=== PATIENT | female | born 1985 | race African-American/Black ===

== ENCOUNTER 2016-11-05 17:00 | Emergency (ER) | payer MEDICAID ==
[~2016-11-05] VITALS: Ht 154.9 cm; Wt 76.2 kg
[~2016-11-05 17:00] MED LIST: KEFLEX500 MG ORAL; NKM
--- NOTE | 2016-11-05 17:18 | Emergency Room Report ---
History of Present Illness General Chief Complaint: Nausea Source: Patient (Teresa Granados) Present Illness HPI 31-year-old female presents emergency Department with nausea and one episode of vomiting non-bloody vomitus times one day. Patient also reports increasing urinary frequency. Patient denies fevers or chills. Patient states her last vaginal period was in August and she is worried that she may be . Patient also states that she has irregular periods.She is . She denies abdominal pain cramping constipation or diarrhea. Denies CP, Palpitations, LOC, AMS, dizziness, Changes in Vision, Sensation, paresthesias, or a sudden severe headache. (Teresa Granados) Allergies: Coded Allergies: No Known Allergies (Unverified , 11/11/12) Patient History Past Medical History: see triage record Past Surgical History: none Pertinent Family History: none Last Menstrual Period: aug 09, 2016 Now: No : 3 Para: 3 Reviewed Nursing Documentation: PMH: Agreed, PSxH: Agreed (Teresa Granados) Nursing Documentation-PMH Past Medical History: No History, Except For (Teresa Granados) Review of Systems All Other Systems: negative except mentioned in HPI (Teresa Granados) Physical Exam Vital Signs Date Time Temp Pulse Resp B/P Pulse Ox O2 Delivery O2 Flow Rate FiO2 11/05/16 17:07 98.4 76 16 121/56 98 Room Air Sp02 EP Interpretation: reviewed, normal General Appearance: no apparent distress, alert, GCS 15, non-toxic Head: normocephalic, atraumatic Eyes: bilateral eye PERRL, bilateral eye normal inspection ENT: hearing grossly normal, normal pharynx, no angioedema, normal voice Neck: full range of motion, supple/symm/no masses Respiratory: chest non-tender, lungs clear, normal breath sounds, speaking full sentences Cardiovascular #1: regular rate, rhythm, no edema Gastrointestinal: normal bowel sounds, non tender, soft, no guarding, no rebound Rectal: deferred Genitourinary: normal inspection, no CVA tenderness Musculoskeletal: back normal, gait/station normal, normal range of motion, non- tender, no calf tenderness Neurologic: alert, oriented x3, responsive, motor strength/tone normal, sensory intact, speech normal Psychiatric: judgement/insight normal, memory normal, mood/affect normal, no suicidal/homicidal ideation Skin: normal color, no rash, warm/dry, well hydrated Lymphatic: no adenopathy (Teresa Granados) Medical Decision Making PA Attestation Dr. bowles is my supervising Physician whom patient management has been discussed with. (Teresa Granados) Diagnostic Impression: Primary Impression: Nausea and vomiting in Additional Impression: UTI (urinary tract infection) Qualified Codes: N30.00 - Acute cystitis without hematuria ER Course Pt. presents to the ED c/o N/V x 1 day with LMP 4 months ago. denies abdominal pain. Ddx considered but are not limited to UTi , , GE. Vital signs: are WNL, pt. is afebrile H&PE are most consistent with UTI ORDERS: - UA labs are attached : WBC's and Leukocyte esterases with few bacteria indicative of mild UTI -Urine Hcg: Positive ED INTERVENTIONS: -4mg Zofran ODT. -D/w Pt. the results of her laboratory tests, d/w pt. proper follow up with OBGYN DISCHARGE: At this time pt. is stable for d/c to home. Will provide printed patient care instructions, and any necessary prescriptions. Care plan and follow up instructions have been discussed with the patient prior to discharge. (Teresa Granados) ER Course urine cx results show klebsiella. resistance to macrobid. left message. certified letter sent (DC PIEDRA M.D.) Last Vital Signs Date Time Temp Pulse Resp B/P Pulse Ox O2 Delivery O2 Flow Rate FiO2 11/05/16 17:07 98.4 76 16 121/56 98 Room Air (Teresa Granados) Disposition: HOME, SELF-CARE Condition: Stable Scripts Metoclopramide Hcl* (REGLAN*) 10 Mg Tablet 10 MG ORAL THREE TIMES A DAY Y for Nausea & Vomiting, #15 TAB Prov: Teresa Granados 11/05/16 Vit #91/Fe Fum/Fa/Dha ( + DHA COMBO PACK) 1 Each Combo..pkg 1 EACH PO DAILY, #1 PACK Prov: Teresa Granados 11/05/16 Nitrofurantoin Monohyd/M-Cryst* (MACROBID 100 MG*) 100 Mg Capsule 100 MG ORAL EVERY 12 HOURS for 7 Days, #14 CAP Prov: Teresa Granados 11/05/16 Patient Instructions: First Trimester of , Urinary Tract Infection, Ltsy-te-Pnic Additional Instructions: Take medications as directed. Follow up with OBGYN in 3-5 days Return sooner to ED if new symptoms occur, or current symptoms become worse. Teresa Granados Nov 05, 2016 17:18 DC PIEDRA M.D. Nov 08, 2016 14:57
[2016-11-05 17:25] LABS: APPEARANCE,URINE SLIGHTLY CLOUDY; KETONES,URINE NEGATIVE (NEGATIVE); LEUKOCYTE ESTERASE ,URINE 2+ (NEGATIVE); NITRITE,URINE NEGATIVE (NEGATIVE); PH,URINE 8 (4.5-8.0); PROTEIN,URINE NEGATIVE (NEGATIVE); UROBILINOGEN,URINE NORMAL MG/DL (0.0-1.0)
[2016-11-05 17:36] LABS: BACTERIA,URINE MODERATE /HPF; SQUAMOUS EPITHELIAL CELL,UR MODERATE /LPF (NONE/OCC); WBC,URINE 15-20 /HPF (0 - 2)
[2016-11-05] MEDS ORDERED: REGLAN10 MG ORAL (17:58)
[2016-11-05] MEDS ORDERED: PRENATAL + DHA1 EAC1 PO (17:58)
[2016-11-05] MEDS ORDERED: NITROFURANTOIN100 M2 ORAL (17:58)
[2016-11-05 18:09] VITALS: BP 114/64
== END 2016-11-05 18:15 | disposition home or self-care (01) ==
LOC: EMR 17:19
DX: O21.9 Vomiting of pregnancy, unspecified (principal); O23.41 Unspecified infection of urinary tract in pregnancy, first trimester; Z3A.00 Weeks of gestation of pregnancy not specified
CPT/HCPCS: 81003; 81025; 87086; 87181; 99284

== ENCOUNTER 2016-11-27 18:08 | Emergency (ER) | payer MEDICAID ==
[~2016-11-27] VITALS: Ht 154.9 cm; Wt 93.0 kg
[~2016-11-27 18:08] MED LIST changes: +NITROFURANTOIN100 M2 ORAL; +PRENATAL + DHA1 EAC1 PO; +REGLAN10 MG ORAL
--- NOTE | 2016-11-27 18:27 | Emergency Room Report ---
History of Present Illness General Chief Complaint: Abdominal Pain Source: Patient Present Illness HPI The pt is a 31 yo F began spotting this morning with lower abd cramping and nausea. The patient is currently at unknown gestation with LNMP 3 months prior. The patient has not had abdominal ultrasound but does have a OB/ TOOL SHARPENER she is seeing. Pain is described as a 10 of 10 dull ache to the mid lower abdomen which radiates to the back. Patient also admits to dysuria. The patient states that she has seen blood when wiping the vagina. She denies any other vaginal discharge. The patient does admit to nausea but denies vomiting and denies any other symptoms including F, chills, DEAN, dizziness, blurred vision , CP, SOB, numbness/tingling. The patient denies any abdominal contractions and denies any tissue passing. Allergies: Coded Allergies: No Known Allergies (Unverified , 11/11/12) Patient History Past Medical History: see triage record Pertinent Family History: none Last Menstrual Period: Aug 2016 irregular cycle Now: Yes - unsure how many weeks : 4 Para: 3 Reviewed Nursing Documentation: PMH: Agreed, PSxH: Agreed Nursing Documentation-PMH Past Medical History: No Stated History Review of Systems All Other Systems: negative except mentioned in HPI Physical Exam Vital Signs Date Time Temp Pulse Resp B/P Pulse Ox O2 Delivery O2 Flow Rate FiO2 11/27/16 18:17 98.1 86 14 101/66 100 Room Air Sp02 EP Interpretation: reviewed, normal General Appearance: no apparent distress, alert, GCS 15, non-toxic Head: normocephalic, atraumatic Eyes: bilateral eye PERRL, bilateral eye normal inspection ENT: hearing grossly normal, normal pharynx, no angioedema, normal voice Gastrointestinal: normal bowel sounds, soft, non-distended, no guarding, no rebound, tenderness - suprapubic Rectal: deferred Genitourinary: normal inspection, no CVA tenderness Musculoskeletal: back normal, gait/station normal, normal range of motion, non- tender Neurologic: alert, oriented x3, responsive, motor strength/tone normal, sensory intact, normal gait, speech normal Psychiatric: judgement/insight normal, memory normal, mood/affect normal, no suicidal/homicidal ideation Skin: normal color, no rash, warm/dry, well hydrated Lymphatic: no adenopathy Medical Decision Making PA Attestation Dr. Rivero is my supervising physician. Patient management was discussed with my supervising physician Diagnostic Impression: Primary Impression: Urinary tract infection affecting ER Course The pt is a 31 yo F began spotting this morning with lower abd cramping and nausea. Differential diagnoses considered include but not limited to UTI, pyelonephritis , threatened , ectopic , hemorrhagic cyst PE: Vitals WNL. NAD. Abdomen: Normal appearance. Non distended. No ecchymosis. Normal BS. No McBurney point tenderness. No guarding. + suprapubic TTP. No CVA tenderness CBC shows leukocytosis. It was unremarkable CMP unremarkable Beta hCG consistent with first trimester Urinalysis is consistent with urinary tract infection The patient is given IV fluids and Zofran and is feeling better The patient is discharged with a prescription for Keflex and will followup with DATA MINING ANALYST as was possible.ER precautions given Laboratory Tests Test 11/27/16 18:48 White Blood Count 13.7 K/UL (4.8-10.8) H Red Blood Count 4.18 M/UL (4.20-5.40) L Hemoglobin 13.1 G/DL (12.0-16.0) Hematocrit 38.8 % (37.0-47.0) Mean Corpuscular Volume 93 FL (80-99) Mean Corpuscular Hemoglobin 31.4 PG (27.0-31.0) H Mean Corpuscular Hemoglobin Concent 33.9 G/DL (32.0-36.0) Red Cell Distribution Width 12.1 % (11.6-14.8) Platelet Count 247 K/UL (150-450) Mean Platelet Volume 5.8 FL (6.5-10.1) L Neutrophils (%) (Auto) 66.9 % (45.0-75.0) Lymphocytes (%) (Auto) 25.7 % (20.0-45.0) Monocytes (%) (Auto) 6.0 % (1.0-10.0) Eosinophils (%) (Auto) 0.7 % (0.0-3.0) Basophils (%) (Auto) 0.7 % (0.0-2.0) Urine Color Yellow Urine Appearance Clear Urine pH 7 (4.5-8.0) Urine Specific [place] 1.010 (1.005-1.035) Urine Protein Negative (NEGATIVE) Urine Glucose (UA) Negative (NEGATIVE) Urine Ketones Negative (NEGATIVE) Urine Occult Blood 2+ (NEGATIVE) H Urine Nitrite Negative (NEGATIVE) Urine Bilirubin Negative (NEGATIVE) Urine Urobilinogen Normal MG/DL (0.0-1.0) Urine Leukocyte Esterase 2+ (NEGATIVE) H Urine RBC 0-2 /HPF (0 - 2) Urine WBC 5-10 /HPF (0 - 2) H Urine Squamous Epithelial Cells Moderate /LPF (NONE/OCC) H Urine Amorphous Sediment Moderate /LPF (NONE) H Urine Bacteria Moderate /HPF (NONE) H Urine HCG, Qualitative Positive Sodium Level 136 mEQ/L (135-145) Potassium Level 4.1 mEQ/L (3.4-4.9) Chloride Level 98 mEQ/L (98-107) Carbon Dioxide Level 23 mEQ/L (20-30) Anion Gap 15 (5-15) Blood Urea Nitrogen 10 mg/dL (7-23) Creatinine 0.7 mg/dL (0.5-0.9) Estimate Glomerular Filtration Rate > 60 mL/min (>60) Glucose Level 94 mg/dL (74-106) Calcium Level 9.5 mg/dL (8.6-10.2) Total Bilirubin < 0.2 mg/dL (0.0-1.2) Aspartate Amino Transferase (AST) 14 U/L (5-40) Alanine Aminotransferase (ALT) 12 U/L (3-33) Alkaline Phosphatase 49 U/L (35-104) Total Protein 6.5 g/dL (6.6-8.7) L Albumin 3.9 g/dL (3.5-5.2) Globulin 2.6 g/dL Albumin/Globulin Ratio 1.5 (1.0-2.7) Human Chorionic Gonadotropin, Quant [id number] mIU/mL Lab Results Impression CBC shows leukocytosis. It was unremarkable CMP unremarkable Beta hCG consistent with first trimester Urinalysis is consistent with urinary tract infection Last Vital Signs Date Time Temp Pulse Resp B/P Pulse Ox O2 Delivery O2 Flow Rate FiO2 11/27/16 18:17 98.1 86 14 101/66 100 Room Air Status: improved Disposition: HOME, SELF-CARE Condition: Improved Scripts Cephalexin (Keflex) 250 Mg Capsule 250 MG PO Q6HR, #28 CAP Prov: LEON ROSAS 11/27/16 LEON ROSAS Nov 27, 2016 18:27
[2016-11-27 18:52] VITALS: BP 110/71
[2016-11-27 19:00] LABS: BASOPHILS % (AUTO) 0.7 % (0.0-2.0); EOSINOPHILS % (AUTO) 0.7 % (0.0-3.0); LYMPHOCYTES % (AUTO) 25.7 % (20.0-45.0); MEAN CORPUSCULAR HEMOGLOBIN 31.4 PG (27.0-31.0); MEAN CORPUSCULAR HGB CONC 33.9 G/DL (32.0-36.0); MEAN CORPUSCULAR VOLUME 93 FL (80-99); MEAN PLATELET VOLUME 5.8 FL (6.5-10.1); NEUTROPHILS % (AUTO) 66.9 % (45.0-75.0); PLATELET COUNT 247 K/UL (150-450); RED BLOOD COUNT 4.18 M/UL (4.20-5.40); RED CELL DISTRIBUTION WIDTH 12.1 % (11.6-14.8); WHITE BLOOD COUNT 13.7 K/UL (4.8-10.8)
[2016-11-27 19:01] LABS: APPEARANCE,URINE CLEAR; KETONES,URINE NEGATIVE (NEGATIVE); LEUKOCYTE ESTERASE ,URINE 2+ (NEGATIVE); NITRITE,URINE NEGATIVE (NEGATIVE); PH,URINE 7 (4.5-8.0); PROTEIN,URINE NEGATIVE (NEGATIVE); UROBILINOGEN,URINE NORMAL MG/DL (0.0-1.0)
[2016-11-27 19:14] LABS: RBC,URINE 0-2 /HPF (0 - 2)
[2016-11-27 19:15] LABS: ALANINE AMINOTRANSFERASE 12 U/L (3-33); ALBUMIN/GLOBULIN RATIO 1.5 (1.0-2.7); AMORPHOUS SEDIMENT,UR MODERATE /LPF; ANION GAP 15 (5-15); ASPARTATE AMINO TRANSFERASE 14 U/L (5-40); BACTERIA,URINE MODERATE /HPF; CALCIUM 9.5 mg/dL (8.6-10.2); CARBON DIOXIDE 23 mEQ/L (20-30); CHLORIDE 98 mEQ/L (98-107); CREATININE 0.7 mg/dL (0.5-0.9); GLOMERULAR FILTRATION RATE > 60 mL/min (>60); HEMOLYSIS 16; POTASSIUM 4.1 mEQ/L (3.4-4.9); SODIUM 136 mEQ/L (135-145); SQUAMOUS EPITHELIAL CELL,UR MODERATE /LPF (NONE/OCC); TOTAL PROTEIN 6.5 g/dL (6.6-8.7)
[2016-11-27 20:02] VITALS: BP 101/65
[2016-11-27] MEDS ORDERED: KEFLEX250 M1 PO (20:31)
[2016-11-27 20:42] VITALS: BP 101/65
== END 2016-11-27 20:44 | disposition home or self-care (01) ==
LOC: EMR 18:41
DX: O23.40 Unspecified infection of urinary tract in pregnancy, unspecified trimester (principal); Z3A.00 Weeks of gestation of pregnancy not specified
CPT/HCPCS: 36415; 80053; 81003; 81025; 84702; 85025; 87086; 87181; 96360; 96374; 99284; J2405; J7040

== ENCOUNTER 2018-12-07 14:56 | Emergency (ER) | payer SELFPAY ==
[~2018-12-07] VITALS: Ht 154.9 cm; Wt 95.3 kg
[~2018-12-07 14:56] MED LIST changes: +KEFLEX250 M1 PO
--- NOTE | 2018-12-07 15:00 | NUR ---
ED Nurse Note: PT CALLED BUT NOT IN WAITING ROOM.
--- NOTE | 2018-12-07 15:05 | NUR ---
ED Nurse Note: PT CALLED BUT NOT IN WAITING ROOM.
[2018-12-07 15:22] VITALS: BP 103/62
[2018-12-07] MEDS ORDERED: NKM (15:26)
--- NOTE | 2018-12-07 15:34 | NUR ---
ED Nurse Note: SHARP UPPER ABDOMINAL PAIN X 2 DAYS. PT ALSO C/O SPOTTING 2-3 DAYS BUT STATES SHE IS NOT ON HER PERIOD. LMP: 11/21/18.
--- NOTE | 2018-12-07 15:54 | NUR ---
ED Nurse Note: pt not found in waiting area.
[2018-12-07 17:01] LABS: APPEARANCE,URINE CLEAR; BILIRUBIN, URINE NEGATIVE (NEGATIVE); COLOR,URINE PALE YELLOW; GLUCOSE, URINE (UA) NEGATIVE (NEGATIVE); KETONES,URINE NEGATIVE (NEGATIVE); LEUKOCYTE ESTERASE ,URINE 2+ (NEGATIVE); NITRITE,URINE NEGATIVE (NEGATIVE); PH,URINE 5 (4.5-8.0); PROTEIN,URINE NEGATIVE (NEGATIVE); UROBILINOGEN,URINE NORMAL MG/DL (0.0-1.0)
[2018-12-07] MEDS ORDERED: Simethicone 80mg tab ORAL ONE (17:30)
[2018-12-07] MEDS ORDERED: IBUPROFEN600 MG ORAL (17:33)
[2018-12-07] MEDS ORDERED: SIMETHICONE80 MG ORAL (17:33)
--- NOTE | 2018-12-07 17:33 | Emergency Room Report ---
History of Present Illness General Chief Complaint: Female Urogenital Problems Source: Patient Present Illness HPI 33-year-old female presents to the emergency department complaining of 5 out of 10 in severity lower abdominal cramping with spotting in between her. She days. Patient reports scant amount of blood however she is concerned because she states she just had her period a week and half ago. She denies and states that she has had tubal ligation approximately 2 years ago. Patient states that ever since she has had irregular menses where she will go 3-4 months without having a period and then having a very heavy cycle when one did occur. She denies nausea or vomiting she also reports increase in flatulence and written gassy pains. Patient denies constipation or diarrhea, fevers or chills. Denies vaginal discharge otherwise she denies external genital lesions , swollen tender lymph nodes, suspicion of STDs or history of PID. Denies hx of fibroids. Allergies: Coded Allergies: No Known Allergies (Unverified , 12/07/18) Patient History Past Medical History: see triage record Past Surgical History: none Pertinent Family History: none Last Menstrual Period: 11/21/18 Now: No Reviewed Nursing Documentation: PMH: Agreed; PSxH: Agreed Nursing Documentation-PMH Past Medical History: No Stated History Review of Systems All Other Systems: negative except mentioned in HPI Physical Exam Vital Signs Date Time Temp Pulse Resp B/P (MAP) Pulse Ox O2 Delivery O2 Flow Rate FiO2 12/07/18 15:22 98.1 73 16 103/62 97 Room Air Sp02 EP Interpretation: reviewed, normal General Appearance: no apparent distress, alert, GCS 15, non-toxic Head: normocephalic, atraumatic Eyes: bilateral eye normal inspection, bilateral eye PERRL ENT: hearing grossly normal, normal voice Neck: full range of motion Respiratory: chest non-tender, lungs clear, normal breath sounds, speaking full sentences Cardiovascular #1: regular rate, rhythm Gastrointestinal: normal bowel sounds, non tender, soft, non-distended, no guarding Rectal: deferred Genitourinary: normal inspection, no CVA tenderness, adnexa normal Musculoskeletal: back normal, gait/station normal, normal range of motion, non- tender Neurologic: alert, oriented x3, responsive, motor strength/tone normal, sensory intact, speech normal, grossly normal Psychiatric: judgement/insight normal Skin: normal color, no rash, warm/dry, well hydrated Lymphatic: no adenopathy Medical Decision Making PA Attestation Dr. Cortes is my supervising Physician whom patient management has been discussed with. Diagnostic Impression: Primary Impression: Irregular menses Additional Impression: Abdominal bloating associated with menstruation ER Course 33-year-old female presents to the emergency department complaining of 5 out of 10 in severity lower abdominal cramping with spotting in between her. She days. Patient reports scant amount of blood however she is concerned because she states she just had her period a week and half ago. She denies and states that she has had tubal ligation approximately 2 years ago. Patient states that ever since she has had irregular menses where she will go 3-4 months without having a period and then having a very heavy cycle when one did occur. She denies nausea or vomiting she also reports increase in flatulence and written gassy pains. Patient denies constipation or diarrhea, fevers or chills. Denies vaginal discharge otherwise she denies external genital lesions , swollen tender lymph nodes, suspicion of STDs or history of PID. Denies hx of fibroids. Ddx considered but are not limited to: Hormonal imbalance, , ectopic , DUB, Fibroid, ectopic . Vital signs: are WNL, pt. is afebrile H&PE are most consistent with: Irregular menses-- patient is in no acute distress during exam and during ED visit she also is nontoxic in appearance and does not appear to be suffering from acute blood loss. ORDERS: -Urine Hcg- Negative -UA:Evidence of red blood cells and occult blood no indication of urinary tract infection at this time. ED INTERVENTIONS: None at this time. I do not identify an emergent condition at this time I feel that this patient is stable for close outpatient follow-up with primary care. Patient is given strict ED return precautions for worsening or new symptoms. DISCHARGE: At this time pt. is stable for d/c to home. Will provide printed patient care instructions, and any necessary prescriptions. Care plan and follow up instructions have been discussed with the patient prior to discharge. Labs Test 12/07/18 16:25 Urine Color Pale yellow Urine Appearance Clear Urine pH 5 (4.5-8.0) Urine Specific [place] 1.020 (1.005-1.035) Urine Protein Negative (NEGATIVE) Urine Glucose (UA) Negative (NEGATIVE) Urine Ketones Negative (NEGATIVE) Urine Blood 4+ (NEGATIVE) Urine Nitrite Negative (NEGATIVE) Urine Bilirubin Negative (NEGATIVE) Urine Urobilinogen Normal MG/DL (0.0-1.0) Urine Leukocyte Esterase 2+ (NEGATIVE) Urine RBC 5-10 /HPF (0 - 2) Urine WBC 2-4 /HPF (0 - 2) Urine Squamous Epithelial Cells Few /LPF (NONE/OCC) Urine Bacteria Few /HPF (NONE) Urine HCG, Qualitative Negative (NEGATIVE) Last Vital Signs Date Time Temp Pulse Resp B/P (MAP) Pulse Ox O2 Delivery O2 Flow Rate FiO2 12/07/18 15:22 98.1 73 16 103/62 97 Room Air Disposition: HOME, SELF-CARE Condition: Stable Scripts Simethicone* (SIMETHICONE*) 80 Mg Tab.chew 80 MG ORAL Q8H PRN for GAS PAIN, #20 TAB 0 Refills Prov: Teresa Granados 12/07/18 Ibuprofen* (MOTRIN*) 600 Mg Tablet 600 MG ORAL THREE TIMES A DAY, #20 TAB 0 Refills Prov: Teresa Granados 12/07/18 Referrals: NON PHYSICIAN (PCP) Departure Forms: Return to Work Return to Work Date: Dec 08, 2018 Work Restrictions: None Other Restrictions: Please excuse for 12/07/2018 Return to Full Activity: Dec 08, 2018 Patient Instructions: Abnormal Uterine Bleeding, [id number] Additional Instructions: Take medications as directed. Follow up with a CHUTE TAPPER within 3-5 days, even if your symptoms have resolved. Return sooner to ED if new symptoms occur, or current symptoms become worse. - Please note that this Emergency Department Report was dictated using [employer] associate technology software, occasionally this can lead to erroneous entry secondary to interpretation by the dictation equipment. Teresa Granados Dec 07, 2018 17:33
[2018-12-07 17:53] VITALS: BP 108/65
--- NOTE | 2018-12-07 17:53 | NUR ---
ED Nurse Note: PT. AAOX4. AMBULATORY. LEFT WITH STEADY GAIT..REGARDING D/C PAPERS AND PRESCRIPTIONS. PT. VERBALIZED THE UNDERSTANDING OF THE TEACHING. ID [place] REMOVED. LEFT WITH ALL BELONGINGS.
== END 2018-12-07 17:53 | disposition home or self-care (01) ==
LOC: EMR 16:10
DX: N92.6 Irregular menstruation, unspecified (principal); R14.0 Abdominal distension (gaseous)
CPT/HCPCS: 81003; 81025; 99283

== ENCOUNTER 2019-08-10 18:27 | Emergency (ER) | payer MEDICAID ==
[~2019-08-10] VITALS: Ht 154.9 cm; Wt 99.8 kg
[~2019-08-10 18:27] MED LIST changes: +IBUPROFEN600 MG ORAL; +SIMETHICONE80 MG ORAL
[2019-08-10 18:41] VITALS: BP 125/85
--- NOTE | 2019-08-10 18:44 | NUR ---
ED Nurse Note: pt walked in c/o heavy vaginal bleeding since the th c/o lower abd pain and passing large clots. Awaiting ermd eval and nsg orders.
--- NOTE | 2019-08-10 18:54 | Emergency Room Report ---
History of Present Illness General Chief Complaint: Vaginal Source: Patient Present Illness HPI 34-year-old female presents to the emergency department complaining of heavy persistent vaginal bleeding x4 weeks. Patient reports previously very irregular periods and one before she had a heavy period that lasted approximately 2 and half weeks. Patient states that she did end up following up with her [employer] SERVER DBA who did not seem to be impressed by her symptoms and did recommend oral contraception for which the patient declined. Patient denies history of easy bruising, blood dyscrasias, fevers, chills, or suspicion of . Patient reports that she had tubal ligation performed several years ago. Patient denies vaginal discharge however she states she does want to be treated for STDs as she recently found out that her was having an affair. She denies genital lesions or rashes. Patient denies swollen tender lymph nodes, joint pain, abdominal pain, nausea or vomiting. Patient does report increased fatigue she denies history of anemia no other aggravating or relieving factors at this time. Denies urinary frequency, urinary urgency, hematuria or dysuria. Allergies: Coded Allergies: No Known Allergies (Unverified , 12/07/18) Patient History Past Medical History: see triage record Past Surgical History: none Pertinent Family History: none Last Menstrual Period: 07/23/19 Now: No Reviewed Nursing Documentation: PMH: Agreed; PSxH: Agreed Nursing Documentation-PM Past Medical History: No Stated History Review of Systems All Other Systems: negative except mentioned in HPI Physical Exam Vital Signs Date Time Temp Pulse Resp B/P (MAP) Pulse Ox O2 Delivery O2 Flow Rate FiO2 08/10/19 18:33 98.4 87 18 125/85 (98) 100 Room Air Sp02 EP Interpretation: reviewed, normal General Appearance: no apparent distress, alert, GCS 15, non-toxic Head: normocephalic, atraumatic Eyes: bilateral eye normal inspection, bilateral eye PERRL ENT: hearing grossly normal, normal voice Neck: full range of motion Respiratory: lungs clear, normal breath sounds, speaking full sentences Cardiovascular #1: regular rate, rhythm Gastrointestinal: normal bowel sounds, non tender, soft, non-distended, no guarding Genitourinary: normal inspection, no CVA tenderness, adnexa normal, other - Some dark red blood in the vaginal canal, no CMT no obvious purulent vaginal discharge. Musculoskeletal: back normal, gait/station normal, normal range of motion, non- tender Neurologic: alert, oriented x3, responsive, motor strength/tone normal, sensory intact, speech normal, grossly normal Psychiatric: judgement/insight normal Skin: no rash Lymphatic: no adenopathy Medical Decision Making PA Attestation Dr. Armendariz is my supervising Physician whom patient management has been discussed with. Diagnostic Impression: Primary Impression: UTI (urinary tract infection) Qualified Codes: N30.01 - Acute cystitis with hematuria Additional Impressions: Menorrhagia with irregular cycle Contact with or exposure to venereal diseases ER Course 34-year-old female presents to the emergency department complaining of heavy persistent vaginal bleeding x4 weeks. Patient reports previously very irregular periods and one before she had a heavy period that lasted approximately 2 and half weeks. Patient states that she did end up following up with her [employer] DBA who did not seem to be impressed by her symptoms and did recommend oral contraception for which the patient declined. Patient denies history of easy bruising, blood dyscrasias, fevers, chills, or suspicion of . Patient reports that she had tubal ligation performed several years ago. Patient denies vaginal discharge however she states she does want to be treated for STDs as she recently found out that her was having an affair. She denies genital lesions or rashes. Patient denies swollen tender lymph nodes, joint pain, abdominal pain, nausea or vomiting. Patient does report increased fatigue she denies history of anemia no other aggravating or relieving factors at this time. Denies urinary frequency, urinary urgency, hematuria or dysuria. Ddx considered but are not limited to: Fibroid, ectopic , Malignancy, Spontaneous , , DUB, UTI, Hormonal imbalance, STI, just to name a few Vital signs: are WNL, pt. is afebrile Pelvic Exam: Some dark red blood in the vaginal vault H&PE are most consistent with: Persistent vaginal bleeding no evidence to suggest significant anemia, no evidence of acute abdomen on physical exam we will perform lab work, ultrasound as well as urinalysis. And check for . ORDERS: -Urinalysis: Moderate bacteria with elevation of inflammatory markers which is consistent with a urinary tract infection. -Urine : Negative -CBC: No evidence of acute hemorrhage or anemia, patient actually has a hemoglobin of 16.5 --Pelvic ultrasound: Unremarkable no acute processes--per official radiology report- Please see report for specific details. ED INTERVENTIONS: -250IU Rocephin IM -1g Azithromycin PO -I do not identify an emergent condition at this time. With current presentation , pt. is stable for close outpatient follow up and conservative treatment. D/ w pt. to return promptly to ED with worsening or new symptoms.- Pt. verbalizes' understanding and agreement with proposed treatment plan. DISCHARGE: At this time pt. is stable for d/c to home. Will provide printed patient care instructions, and any necessary prescriptions. Care plan and follow up instructions have been discussed with the patient prior to discharge. Labs Test 08/10/19 20:28 08/10/19 21:00 White Blood Count 10.4 K/UL (4.8-10.8) Red Blood Count 4.42 M/UL (4.20-5.40) Hemoglobin 13.2 G/DL (12.0-16.0) Hematocrit 38.8 % (37.0-47.0) Mean Corpuscular Volume 88 FL (80-99) Mean Corpuscular Hemoglobin 29.9 PG (27.0-31.0) Mean Corpuscular Hemoglobin Concent 34.1 G/DL (32.0-36.0) Red Cell Distribution Width 10.9 % (11.6-14.8) Platelet Count 279 K/UL (150-450) Mean Platelet Volume 5.8 FL (6.5-10.1) Neutrophils (%) (Auto) 60.7 % (45.0-75.0) Lymphocytes (%) (Auto) 33.1 % (20.0-45.0) Monocytes (%) (Auto) 4.2 % (1.0-10.0) Eosinophils (%) (Auto) 1.1 % (0.0-3.0) Basophils (%) (Auto) 0.9 % (0.0-2.0) Prothrombin Time 10.0 SEC (9.30-11.50) Prothromb Time International Ratio 0.9 (0.9-1.1) Activated Partial Thromboplast Time 27 SEC (23-33) Urine Color Pale yellow Urine Appearance Slightly cloudy Urine pH 8 (4.5-8.0) Urine Specific [place] 1.015 (1.005-1.035) Urine Protein 1+ (NEGATIVE) Urine Glucose (UA) Negative (NEGATIVE) Urine Ketones Negative (NEGATIVE) Urine Blood 1+ (NEGATIVE) Urine Nitrite Negative (NEGATIVE) Urine Bilirubin Negative (NEGATIVE) Urine Urobilinogen Normal MG/DL (0.0-1.0) Urine Leukocyte Esterase 1+ (NEGATIVE) Urine RBC 5-10 /HPF (0 - 2) Urine WBC 10-15 /HPF (0 - 2) Urine Squamous Epithelial Cells Many /LPF (NONE/OCC) Urine Amorphous Sediment Many /LPF (NONE) Urine Bacteria Moderate /HPF (NONE) Urine HCG, Qualitative Negative (NEGATIVE) CT/MRI/US Diagnostic Results CT/MRI/US Diagnostic Results : Imaging Test Ordered: Pelvic US Impression "Unremarkable no acute processes"--per official radiology report- Please see report for specific details. Last Vital Signs Date Time Temp Pulse Resp B/P (MAP) Pulse Ox O2 Delivery O2 Flow Rate FiO2 08/10/19 18:41 98.4 18 125/85 100 Room Air 08/10/19 18:33 87 Disposition: HOME, SELF-CARE Condition: Stable Scripts Ibuprofen* (MOTRIN*) 600 Mg Tablet 600 MG ORAL THREE TIMES A DAY, #30 TAB 0 Refills Prov: Teresa Granados 08/10/19 Nitrofurantoin Monohyd/M-Cryst* (MACROBID 100 MG*) 100 Mg Capsule 100 MG ORAL EVERY 12 HOURS for 7 Days, #14 CAP Prov: Teresa Granados 08/10/19 Patient Instructions: Menorrhagia, [id number], Urinary Tract Infection, Easy- to-Read Additional Instructions: Take medications as directed. Follow up with a POLE INC[employer]OR OPERATOR within 3 days, even if your symptoms have resolved. * * Recommend further evaluation for heavy irregular menses, including Hormone levels. Return sooner to ED if new symptoms occur, or current symptoms become worse. - Please note that this Emergency Department Report was dictated using [employer] folder technology software, occasionally this can lead to erroneous entry secondary to interpretation by the dictation equipment. Teresa Granados Aug 10, 2019 18:54
--- NOTE | 2019-08-10 19:15 | NUR ---
ED Nurse Note: Report received from ABEL Wilkerson in room. no acute distress is noted.
--- NOTE | 2019-08-10 19:24 | NUR ---
ED Nurse Note: pt went to have ultrasound accompanie by machining technician
--- NOTE | 2019-08-10 20:29 | NUR ---
ED Nurse Note: Pt returned back from Ultrasound.
--- NOTE | 2019-08-10 20:41 | NUR ---
ED Nurse Note: Blood sample sent down to lab
[2019-08-10 20:47] LABS: BASOPHILS % (AUTO) 0.9 % (0.0-2.0); EOSINOPHILS % (AUTO) 1.1 % (0.0-3.0); HEMATOCRIT 38.8 % (37.0-47.0); HEMOGLOBIN 13.2 G/DL (12.0-16.0); INR 0.9 (0.9-1.1); LYMPHOCYTES % (AUTO) 33.1 % (20.0-45.0); MEAN CORPUSCULAR VOLUME 88 FL (80-99); MONOCYTES % (AUTO) 4.2 % (1.0-10.0); NEUTROPHILS % (AUTO) 60.7 % (45.0-75.0); PLATELET COUNT 279 K/UL (150-450); RED BLOOD COUNT 4.42 M/UL (4.20-5.40); RED CELL DISTRIBUTION WIDTH 10.9 % (11.6-14.8); WHITE BLOOD COUNT 10.4 K/UL (4.8-10.8)
[2019-08-10 21:15] VITALS: BP 130/80
[2019-08-10 21:23] LABS: APPEARANCE,URINE SLIGHTLY CLOUDY; BILIRUBIN, URINE NEGATIVE (NEGATIVE); COLOR,URINE PALE YELLOW; GLUCOSE, URINE (UA) NEGATIVE (NEGATIVE); KETONES,URINE NEGATIVE (NEGATIVE); LEUKOCYTE ESTERASE ,URINE 1+ (NEGATIVE); NITRITE,URINE NEGATIVE (NEGATIVE); PH,URINE 8 (4.5-8.0); PROTEIN,URINE 1+ (NEGATIVE); UROBILINOGEN,URINE NORMAL MG/DL (0.0-1.0)
[2019-08-10] MEDS ORDERED: NITROFURANTOIN100 M2 ORAL (21:49)
[2019-08-10] MEDS ORDERED: IBUPROFEN600 MG ORAL (21:49)
--- NOTE | 2019-08-10 21:51 | NUR ---
ER DISCHARGE NOTE: Patient is cleared to be discharged per ERMD, pt is aox4, on room air, with stable vital signs. pt was given dc and prescription instructions, pt was able to verbalize understanding, pt id band and iv site removed without complications. pt is able to ambulate with steady gait. pt took all belongings.
[2019-08-10] MEDS ORDERED: Azithromycin 250mg tab ORAL ONE (22:00)
[2019-08-10] MEDS ORDERED: Lidocaine 1% MPF 10mg/ml 5ml INJ ONE (22:00)
[2019-08-10 22:07] VITALS: BP 126/80
--- NOTE | 2019-08-11 09:18 | Diagnostic Imaging Report ---
Indication:Lower abdominal and pelvic pain Technique: Grayscale and duplex Doppler imaging of the pelvis performed utilizing a transabdominal and endovaginal scan. Comparison: None Findings: There are nabothian cysts within the cervix. The uterus appears mildly heterogeneous. Uterus measuring 9.4 x 6.8 x 4.6 cm. Endometrium is about 9 mm in thickness. Both ovaries show no gross abnormalities and show Doppler evidence of blood flow but not evaluated well. Right ovary is 3.8 x 2.9 x 2.0 cm. Left ovary 3.1 x 2.9 x 1.6 cm. There is no free fluid. IMPRESSION: No acute abnormalities identified. Cervical nabothian cysts.
== END 2019-08-10 21:51 | disposition home or self-care (01) ==
LOC: EMR 20:05
DX: N30.01 Acute cystitis with hematuria (principal); N92.0 Excessive and frequent menstruation with regular cycle; Z20.2 Contact with and (suspected) exposure to infections with a predominantly sexual mode of transmission
CPT/HCPCS: 36415; 76830; 76856; 81003; 81025; 85025; 85610; 85730; 87086; 96372; 96374; J0696; Q0144; Z7502; 99284